=== PATIENT | male | born 1970 ===

== ENCOUNTER 2019-08-08 05:05 | Day surgery (SDC) | payer OTHER ==
[~2019-08-08 05:05] MED LIST: GLUMETZA500 MG PO; ZESTRIL10 M1 PO; ZOCOR20 MG PO
[2019-08-08] MEDS ORDERED: ULTRACET PO (08:55)
[2019-08-08] MEDS ORDERED: AMOX1TAB5 PO (08:55)
== END 2019-08-08 11:00 | disposition home or self-care (01) ==
LOC: CIR.AMB 05:05
DX: D36.7 Benign neoplasm of other specified sites (principal); D17.39 Benign lipomatous neoplasm of skin and subcutaneous tissue of other sites